=== PATIENT | male | born 1970 | race Asian ===

== ENCOUNTER 2019-06-14 19:31 | Emergency (ER) | payer OTHER ==
[~2019-06-14] VITALS: Ht 172.7 cm; Wt 108.9 kg
[2019-06-14 19:42] VITALS: Ht 172.7 cm; Wt 108.9 kg
[2019-06-14 20:41] LABS: BASOPHIL % 0.6 % (0-2); PLATELET COUNT 183 x10^3mcL (130-400); RED CELL DISTRIBUTION WIDTH 12.2 % (11.5-14.5)
[2019-06-14 20:47] LABS: CALCIUM 8.6 mg/dL (8.5-10.1); CARBON DIOXIDE 22.6 mmol/L (21-32); CHLORIDE SERUM 100 mmol/L (98-107); CREATININE SERUM 0.9 mg/dL (0.7-1.3); GFR1 > 60 mL/min; GLUCOSE SERUM 113 mg/dL (74-106); POTASSIUM SERUM 3.3 mmol/L (3.5-5.1); SODIUM SERUM 137 mmol/L (136-145)
[2019-06-14 20:51] LABS: ALBUMIN 3.9 g/dL (3.4-5.0); ALKALINE PHOSPHATASE 121 U/L (46-116); ALT/SGPT 94 U/L (16-63); AST/SGOT 95 U/L (15-37); BILIRUBIN TOTAL 1.7 mg/dL (0.20-1.00)
[2019-06-14 20:52] LABS: TOTAL PROTEIN, SERUM 8.8 g/dL (6.4-8.2)
[2019-06-14 23:30] VITALS: BP 119/71
== END 2019-06-14 23:30 | disposition home or self-care (01) ==
LOC: ED 19:31
DX: I45.10 Unspecified right bundle-branch block (principal); R07.89 Other chest pain; R00.2 Palpitations
CPT/HCPCS: 36415; 83880; 85378